=== PATIENT | female | born 1990 | race Caucasian/White ===

== ENCOUNTER 2016-07-10 17:59 | Emergency (ER) | payer OTHER ==
[~2016-07-10] VITALS: Ht 162.6 cm; Wt 68.0 kg
[~2016-07-10 17:59] MED LIST: BACTRIM DS TAB1 EACH PO; BCP; FLOMAX0.4 MG PO; GENTAMICIN SU3 MG/ML OPHTHALMIC; IBUPROFEN 600600 M1 PO; NORCO 5-325 TA1 EACH PO; PERCOCET 7.5-31 EACH PO; PYRIDIUM200 MG PO; TRILEPTAL600 MG PO
[2016-07-10 18:14] LABS: URINE BILIRUBIN NEGATIVE (Negative); URINE BLOOD NEGATIVE (Negative); URINE COLOR YELLOW; URINE GLUCOSE-RANDOM* NEGATIVE (Negative); URINE KETONES NEGATIVE (Negative); URINE LEUKOCYTES-REFLEX NEGATIVE (Negative); URINE PROTEIN (DIPSTICK) NEGATIVE (Negative); URINE UROBILINOGEN 0.2 E.U./dl (0.2-1.0)
[2016-07-10] MEDS ORDERED: NAPROSYN500 MG PO (19:41)
[2016-07-11 15:06] LABS: CHLAMYDIA TRACHOMATIS-PCR Negative (Negative); NEISSERIA GONORRHEA-PCR Negative (Negative)
== END 2016-07-10 20:02 | disposition home or self-care (01) ==
LOC: ER 17:59
PROVIDERS: Physician Assistant
DX: N92.6 Irregular menstruation, unspecified (principal); F31.9 Bipolar disorder, unspecified; Z90.89 Acquired absence of other organs

== ENCOUNTER 2016-10-29 21:34 | Emergency (ER) | payer OTHER ==
[~2016-10-29] VITALS: Ht 162.6 cm; Wt 69.8 kg
[~2016-10-29 21:34] MED LIST changes: +NAPROSYN500 MG PO
[2016-10-29] MEDS ORDERED: AMOXIL 875 MG875 M1 PO (21:57)
[2016-10-29] MEDS ORDERED: TRINATE TABLET1 TAB PO (21:57)
== END 2016-10-29 22:27 | disposition home or self-care (01) ==
LOC: ER 21:34
DX: O26.891 Other specified pregnancy related conditions, first trimester (principal); K08.89 Other specified disorders of teeth and supporting structures; F31.9 Bipolar disorder, unspecified; Z3A.08 8 weeks gestation of pregnancy; Z98.890 Other specified postprocedural states

== ENCOUNTER → 2019-03-10 | Outpatient (CLI) | payer OTHER ==
[~2019-03-10] MED LIST changes: +AMOXIL 875 MG875 M1 PO; +TRINATE TABLET1 TAB PO
== END ==
LOC: ULTRA 14:20
DX: R16.1 Splenomegaly, not elsewhere classified (principal)